=== PATIENT | male | born 1995 | race Caucasian/White ===

== ENCOUNTER 2018-09-20 19:05 | Emergency (ER) | payer OTHER ==
[~2018-09-20] VITALS: Ht 177.8 cm; Wt 96.3 kg
[2018-09-20 19:08] VITALS: BP 128/81
[2018-09-20] MEDS ORDERED: DIPH,PERTUSS(ACELL),TET VAC/PF 0.5 ML IM-VACC ONE ×2 (20:00→20:04)
[2018-09-20] MEDS ORDERED: LIDOCAINE 1%, 10ML INFIL ONE (20:00)
[2018-09-20] MEDS ORDERED: NEOSPORIN OINT. PKT 1 PACKET ONE (20:04)
[2018-09-20] MEDS ORDERED: LIDOCAINE-MPF 1%, 5ML ONE (20:04)
--- NOTE | 2018-09-20 20:15 | NUR ---
MEDICATED PER EMAR (TDAP) WOUND ANESTITIZED BY PROVIDER PATIENT UPDATED ON ESTIMATED POC
[2018-09-20] MEDS ORDERED: NEOSPORIN OINT. PKT 1 PACKET TP ONE (20:30)
--- NOTE | 2018-09-20 20:48 | NUR ---
WOUND STAPLED BY PROVIDER WITH COMPLETE CLOSURE. DRESSED WITH TRIPLE ABX CREAM/ADAPTIC AND ROS WRAP REVIEWED WOUND CARE, WHAT TO WATCH FOR AND WHEN TO RETURN FOR REMOVAL
== END 2018-09-20 20:53 | disposition home or self-care (01) ==
LOC: EDSEX 19:05 → ED 20:40
DX: S81.812A Laceration without foreign body, left lower leg, initial encounter (principal); S81.811A Laceration without foreign body, right lower leg, initial encounter; F17.200 Nicotine dependence, unspecified, uncomplicated; W22.8XXA Striking against or struck by other objects, initial encounter; Y93.89 Activity, other specified; Y92.009 Unspecified place in unspecified non-institutional (private) residence as the place of occurrence of the external cause; Y99.8 Other external cause status
CPT/HCPCS: 12032; 73590; 90471; 90715; 99284; J3490

== ENCOUNTER 2018-10-11 15:58 | Emergency (ER) | payer OTHER ==
[~2018-10-11] VITALS: Ht 177.8 cm; Wt 98.5 kg
[2018-10-11 15:59] VITALS: BP 123/71
== END 2018-10-11 16:58 | disposition home or self-care (01) ==
LOC: ED 16:15
DX: S81.812D Laceration without foreign body, left lower leg, subsequent encounter (principal); W45.8XXD Other foreign body or object entering through skin, subsequent encounter
CPT/HCPCS: 99281